=== PATIENT | female | born 1985 | race Caucasian/White ===

== ENCOUNTER 2024-04-15 22:54 | Emergency (ER) | payer OTHER, SELFPAY ==
[2024-04-15 22:55] VITALS: BP 163/105
[2024-04-15 23:55] VITALS: BMI 29.9
[2024-04-15 23:59] VITALS: BP 145/93
[2024-04-16] VITALS: BP 133/95
--- NOTE | 2024-04-16 00:30 | ED.GENMED ---
History of Present Illness
<POWER Carson - Last Filed: 04/16/24 01:28>
General
Chief Complaint: Cold/Flu/URI Symptoms
Source: patient
Time Seen by Provider: 04/16/24 00:30
Nursing documentation reviewed up to this point in time: agreed with
History of Present Illness
History of Present Illness:
Patient is a 38-year-old female with a past medical history of anxiety and bipolar disorder who comes into the emergency department for flulike symptoms x 3 days. Patient stated that she developed sudden severe onset of shortness of breath 12 hours
ago which led to her arrival here at the emergency room. The patient stated that her URI symptoms of cough ,headache, congestion, and postnasal drip began about a week ago, but she went to the primary care doctor this past Tuesday and was diagnosed
with right acute otitis media and given a course of amoxicillin. She is taken srvf-dnx-skpyloa cold medicine including Mucinex, ibuprofen, and Flonase without improvement. She denies nausea, vomiting, diarrhea, chills, abdominal pain.
She denies a past medical history of interstitial lung disease, sarcoidosis. She also denies a past history of smoking of any kind.
Past History
<POWER Carson - Last Filed: 04/16/24 01:28>
Past History
ED Past Medical History: None
Social History
Personal:
Review of Systems
<POWER Carson - Last Filed: 04/16/24 01:28>
Review of Systems
EENT: Reports runny nose and other (nasal congestion); Denies sore throat
Respiratory: Reports cough and trouble breathing; Denies hemoptysis
Cardiac: Reports no symptoms
ABD/GI: Reports no symptoms
: Reports no symptoms
Musculoskeletal: Reports no symptoms
Skin: Reports no symptoms
Neurological: Reports no symptoms
Endocrine: Reports no symptoms
Hematologic/Lymphatic: Reports no symptoms
Phy Exam
<POWER Carson - Last Filed: 04/16/24 01:28>
General Physical Exam
General Presentation: well appearing and no apparent distress
General age: appears stated age
General Skin: warm and dry
General Habitus: normal
General Mental: alert
General Hydration: appears well hydrated
ENT Exam
ENT Exam: pharynx normal (posterior nasal drip noted ) and TM's abnormal (Bilateral TM erythema, no tm bulging or effusion noted posteriorly )
Eye Exam
Eye Exam: PERRL
Cardiovascular Exam
Cardiovascular Exam: no gallop, no murmur, normal peripheral pulses and tachycardia
Heart Sounds: normal
Pulmonary Exam
Cough: coarse cough
Breath Sounds: Crackles: left lower
Neurological Exam
Neurological Exam: alert and oriented x3
Musculoskeletal Exam
Musculoskeletal Exam: full ROM
Skin Exam
Skin Exam: normal color, warm/dry and no rash
Psychiatric Exam
Psychiatric Exam: normal mood/affect
Course
<Jovan Marrero SILVINO - Last Filed: 04/16/24 01:28>
Orders/Labs/Results
Orders:
Orders
04/16/24 00:03
COVID-19 Antigen Urgent
Source: Nasal Swab
Influenza A+B Rapid Molecular Urgent
DAPHNEY Source: Nasal Swab
Specimen Description:
04/16/24 00:06
Chest [CR Chest - 2 Views ] Urgent
Comment:
Reason For Exam: sob
04/16/24 01:06
Doxycycline [Vibramycin] 100 mg PO NOW STA
Ibuprofen [Motrin] 800 mg PO NOW STA
Ipratropium/Albuterol Sulfate [Duoneb] 3 ml INH R NOW STA
Vital Signs
Initial and Last Documented VS:
Initial Vital Signs
Temp Pulse Resp BP Pulse Ox
99.5 F 105 16 163/105 99
04/15/24 22:55 04/15/24 22:55 04/15/24 22:55 04/15/24 22:55 04/15/24 22:55
Last Documented Vital Signs
Temp Pulse Resp BP Pulse Ox
99.5 F 105 16 133/95 98
04/15/24 22:55 04/15/24 22:55 04/15/24 22:55 04/16/24 00:00 04/16/24 00:00
<Camille Sarmiento, DO - Last Filed: 04/16/24 02:04>
Orders/Labs/Results
Orders:
Orders
04/16/24 00:03
COVID-19 Antigen Urgent
Source: Nasal Swab
Influenza A+B Rapid Molecular Urgent
DAPHNEY Source: Nasal Swab
Specimen Description:
04/16/24 00:06
Chest [CR Chest - 2 Views ] Urgent
Comment:
Reason For Exam: sob
04/16/24 01:06
Doxycycline [Vibramycin] 100 mg PO NOW STA
Ibuprofen [Motrin] 800 mg PO NOW STA
Ipratropium/Albuterol Sulfate [Duoneb] 3 ml INH R NOW STA
Vital Signs
Initial and Last Documented VS:
Initial Vital Signs
Temp Pulse Resp BP Pulse Ox
99.5 F 105 16 163/105 99
04/15/24 22:55 04/15/24 22:55 04/15/24 22:55 04/15/24 22:55 04/15/24 22:55
Last Documented Vital Signs
Temp Pulse Resp BP Pulse Ox
99.5 F 105 16 133/95 98
04/15/24 22:55 04/15/24 22:55 04/15/24 22:55 04/16/24 00:00 04/16/24 00:00
<POWER Carson - Last Filed: 04/16/24 01:28>
MDM/Problems Addressed
Differential Diagnosis Includes:
unspecified URI, PNA, Bronchitis
<POWER Carson - Last Filed: 04/16/24 01:28>
*Critical Care Note
Total Time (30-74mins, 75-104mins- exclusive of procedures): Not Applicable
<Camille Sarmiento DO - Last Filed: 04/16/24 02:04>
*Radiology
Radiology exam reviewed: preliminary read by ED provider (Chest x-ray concerning for a subtle infiltrate left lower lobe)
*Pulse Oximetry
Patient hypoxic: no
ED Attending Note
<POWER Carson - Last Filed: 04/16/24 01:28>
-
Portions of this chart may have been created with voice recognition software.� Occasional wrong word or��sound alike� substitutions may have occurred due to the inherent limitations of voice recognition software.
<Camille Sarmiento DO - Last Filed: 04/16/24 02:04>
ED Attending Note
Patient seen and examined by attending physician: Yes
I performed the substantive portion of visit, reviewed & personally made and approve the management plan that is documented in note by myself or DOROTHEA.: Yes
ED Attending Note:
This is a 38-year-old woman who has history of bipolar disorder who complains of initially nasal congestion that began 5 and half days ago, then onset of cough 3-1/2 days ago. She was evaluated by PCP on April 13 diagnosed with otitis
media and started on amoxicillin. She admits that she has had some nasal congestion but no ear pain. She denies fever. Cough has persisted, hacking in nature, nonproductive with onset of shortness of breath tonight feeling that she cannot get a
deep breath, feeling that she cannot get enough air.
No history of similar episodes in the past. Lifelong non-smoker. No recent travel. She denies chest pain. No dizziness nor lightheadedness.
No history of lung disease, no history of asthma nor reactive airway disease.
Her son is currently being treated for pneumonia.
GENERAL: 38-year-old woman appears her stated age, bright and alert, pleasant, appears in no acute distress. Frequent hacking nonproductive cough is noted otherwise able to speak in full sentences, no respiratory distress.
EYE: anicteric
NECK: Supple, nontender, no meningismus, no significant adenopathy.
ENT: posterior pharynx is without injection, there is mild pearly postnasal drip noted, oral mucosa is moist. TMs are moderately injected superiorly, nares have mildly boggy turbinates with scant clear rhinorrhea.
CARDIAC: Regular rate and rhythm. no murmur.
LUNGS: No respiratory distress, few scatter end inspiratory wheezes bilaterally as well as fine rales left base.
ABDOMEN: Soft, nondistended, without focal tenderness
NEUROLOGICAL: Alert and oriented x3, no focal neuro deficits. Gait is steady.
SKIN: Warm and dry, normal color, skin intact. No rash.
MUSCULOSKELETAL: No C/C/E. peripheral pulses are full and equal b/l. No palpable tenderness.
PSYCH: Normal and appropriate interaction.
History and exam concerning for left lower lobe pneumonia, other consideration is asthmatic bronchitis.
Chest x-ray concerning for hazy/subtle left lower lobe infiltrate noted on lateral film.
COVID and influenza testing are negative.
Will trial a DuoNeb nebulizer for cough, scattered wheezing and will initiate a course of doxycycline for community-acquired pneumonia/to broaden coverage of potential atypicals. Recommend discontinuing amoxicillin.
04/16/2024 01:50 AM
Patient feeling markedly improved with marked improvement in cough after nebulizer treatment.
Currently resting comfortably.
Will discharge to home with 10-day course of doxycycline and a prescription for albuterol inhaler to use as needed for cough, shortness of breath.
Discussed importance of staying well-hydrated on a daily basis.
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
Prompt follow-up with PCP for recheck.
Return precautions discussed.
Discharge Plan
Departure
Patient Disposition: Home (Routine Discharge)
Date of Disposition: 04/16/24
Time of Disposition: 01:52
Patient with high blood pressure during this ER visit?: Yes
Condition: Good
Covid-19: Negative COVID-19
Discharge Problem:
Community acquired pneumonia
Instructions: Community-acquired pneumonia in adults, How to Use a Metered Dose Inhaler ED
Prescriptions:
New
albuterol sulfate 90 mcg/actuation aerosol powdr breath activated
2 inh inhalation QIDPRN PRN (Reason: shortness of breath or wheezing) Qty: 1 0RF
doxycycline monohydrate 100 mg capsule
100 mg PO BID Qty: 20 1RF
No Action
Lamictal Capsule
400 mg PO HS
quetiapine [Seroquel] 100 MG tablet
100 mg PO HS
prenat.vits,beto,qpf-vjai-enphk [ Vitamin] 1 EACH tablet
1 tab PO DAILY
acetaminophen 325 MG tablet
650 mg PO Q4HPRN PRN (Reason: mild pain) 0RF
sennosides-docusate sodium 1 TABLET tablet
1 tab PO DAILYPRN PRN (Reason: constipation) 0RF
ibuprofen 600 MG tablet
400 mg PO Q4HPRN PRN (Reason: moderate pain/cramps) 0RF
Referrals:
Marce Stanley CRNP [Family Provider] - Call in 1-3 days for appt
Stand Alone Forms: Return to Work
Interventions
Interventions:
*Risk Screen - Suicide Last Done: 04/15/24 22:55
*General Assessment Last Done: 04/15/24 23:55
*Neglect/Abuse Screening Last Done: 04/15/24 22:55
ED- Fall Risk Assessment Last Done: 04/15/24 23:55
*ED COVID-19 Vaccine History Last Done: 04/15/24 23:55
ED- Pulmonary Assessment Last Done: 04/15/24 23:55
Discharge Date and Time
Print Language: HUNGARIAN
[2024-04-16 00:34] LABS: COVID-19 Antigen Negative (Negative)
[2024-04-16] MEDS: DUONEB 3 ML INH (01:24)
[2024-04-16] MEDS: VIBRAMYCIN 100 MG PO (01:24)
[2024-04-16] MEDS: MOTRIN 800 MG PO (01:24)
[2024-04-16 02:07] VITALS: BP 123/91
== END 2024-04-16 02:15 | disposition home or self-care (01) ==
LOC: EMR 22:54
PROVIDERS: EMERGENCY PHYSICIAN Emergency Medicine; FAMILY PHYSICIAN Nurse Practitioner
DX: J18.9 Pneumonia, unspecified organism (principal); R03.0 Elevated blood-pressure reading, without diagnosis of hypertension; F31.9 Bipolar disorder, unspecified; Z11.52 Encounter for screening for COVID-19
CPT/HCPCS: 99284; 94640; 71046; 87502; 87811

== ENCOUNTER → 2024-07-27 09:30 | Outpatient (REF) | payer OTHER, SELFPAY | LOC: CLAB 09:30 | PROVIDERS: ATTENDING PHYSICIAN Obstetrics & Gynecology Gynecology | DX: Z30.2 Encounter for sterilization (principal) | CPT/HCPCS: 88302 ==

== ENCOUNTER → 2024-12-07 15:05 | Outpatient (REF) | payer OTHER, SELFPAY | LOC: WDC 15:05 | PROVIDERS: ATTENDING PHYSICIAN Obstetrics & Gynecology Gynecology; FAMILY PHYSICIAN Nurse Practitioner | DX: Z12.31 Encounter for screening mammogram for malignant neoplasm of breast (principal) | CPT/HCPCS: 77063; 77067 ==

== ENCOUNTER → 2024-12-20 08:28 | Outpatient (REF) | payer OTHER, SELFPAY | LOC: WDC 08:28 | PROVIDERS: ATTENDING PHYSICIAN Obstetrics & Gynecology Gynecology; FAMILY PHYSICIAN Nurse Practitioner | DX: R92.8 Other abnormal and inconclusive findings on diagnostic imaging of breast (principal) | CPT/HCPCS: 76642 ==